=== PATIENT | female | born 1995 | race Hispanic/Latino ===

== ENCOUNTER 2021-12-04 14:24 | Outpatient (CLI) | payer OTHER ==
[2021-12-05 12:45] LABS: SARS-CoV-2 PCR by NAA DETECTED (NotDetected)
== END 2021-12-04 14:25 | disposition home or self-care (01) ==
LOC: CSHLAB 14:24
PROVIDERS: ATTEND Family Medicine
DX: U07.1 COVID-19 (principal)
CPT/HCPCS: U0003; U0005

== ENCOUNTER 2021-12-09 11:40 | Inpatient (IN) | payer MEDICAID, OTHER, SELFPAY ==
[2021-12-09 12:50] VITALS: BMI 33.6
[2021-12-09] MEDS ORDERED: HYDROcodone/Acetaminophen 5/325 mg Tablet PO PRN ×4 (12:58→18:18)
[2021-12-09] MEDS ORDERED: Butorphanol Tartrate 1 MG/ML VIAL SLOW IVP PRN (12:58)
[2021-12-09] MEDS ORDERED: Promethazine HCl 25 MG/ML VIAL IM PRN ×3 (12:58→18:18)
[2021-12-09] MEDS ORDERED: Methylergonovine 0.2 MG/ML VIAL IM PRN (12:58)
[2021-12-09] MEDS ORDERED: Diphenoxylate HCl/Atropine Tablet PO PRN ×2 (12:58)
[2021-12-09] MEDS ORDERED: Carboprost 250 MCG/ML AMP IM PRN (12:58)
[2021-12-09] MEDS ORDERED: Ibuprofen 800 MG TAB PO PRN (12:58)
[2021-12-09] MEDS ORDERED: hydrALAZINE 20 MG/ML VIAL SLOW IVP PRN ×2 (12:58→18:18)
[2021-12-09] MEDS ORDERED: Ondansetron PF 4 MG/2 ML Vial IVP PRN ×3 (12:58→18:18)
[2021-12-09] MEDS ORDERED: Acetaminophen 500 MG TAB PO PRN (12:58)
[2021-12-09] MEDS ORDERED: Lidocaine 1% (PF) 30 ML VIAL SC PRN (12:58)
[2021-12-09] MEDS ORDERED: Misoprostol 200 MCG TAB PR PRN (12:58)
[2021-12-09] MEDS ORDERED: Lactated Ringer's 1,000 ML IV SCH (13:00)
[2021-12-09] MEDS ORDERED: Penicillin G Potassium 5 MILL.UNITS in Sodium Chloride 0.9% 100 ML IVPB SCH (13:00)
[2021-12-09] MEDS ORDERED: NS w/ Oxytocin 30 units 500 ML IV SCH (13:00)
[2021-12-09 13:39] LABS: Hemoglobin 12.6 g/dL (12.0-15.5); Mean Corpuscular HGB CONC 33.2 g/dL (32.0-36.0); Mean Corpuscular Hemoglobin 28.4 pg (27.0-33.0); Mean Corpuscular Volume 85.6 fl (81.6-98.3); Mean Platelet Volume 11.5 fl (7.4-10.4); Platelet Count 204 10x3/uL (150-450); Red Blood Cell (RBC) Count 4.43 10x6/uL (3.90-5.03); White Blood Cell (WBC) Count 7.9 10x3/uL (3.5-10.5)
[2021-12-09 14:10] LABS: Hep B Surf Ag Non-Reactive S/CO (NonReactive)
[2021-12-09 14:11] LABS: Syphilis Antibody Nonreactive (Nonreactive); Syphilis Antibody Index 0.03 S/CO (<1.00 Non-Reactive)
[2021-12-09] MEDS ORDERED: Azithromycin 500 MG VIAL ONE (14:20)
[2021-12-09] MEDS ORDERED: ceFAZolin 2 GM/Dextrose 50 ML IVPB ONE (14:20)
[2021-12-09] MEDS ORDERED: Famotidine/PF 20 mg/2ml Vial SLOW IVP PRN (15:11)
[2021-12-09] MEDS ORDERED: Bicitra 30 ML UDCUP PO PRN (15:11)
[2021-12-09] MEDS ORDERED: ceFAZolin 2 GM/Dextrose 50 ML 2 GM in Premix Bag 1 BAG IVPB SCH (15:15)
[2021-12-09] MEDS ORDERED: Azithromycin 500 MG in Sodium Chloride 0.9% 250 ML 250 ML IVPB SCH (15:15)
[2021-12-09] MEDS ORDERED: Promethazine HCl 25 MG SUPP PR PRN (15:34)
[2021-12-09] MEDS ORDERED: L&D-Morphine 4 MG/ML VIAL SLOW IVP PRN (15:34)
[2021-12-09] MEDS ORDERED: Ondansetron HCl/PF 4 MG/2 ML Vial IVP PRN (15:34)
[2021-12-09] MEDS ORDERED: Naloxone HCl 0.4 mg/ml Vial IV PRN (15:34)
[2021-12-09] MEDS ORDERED: Ketorolac Tromethamine 30 MG/ML VIAL IVP PRN (15:34)
[2021-12-09] MEDS ORDERED: diphenhydrAMINE 50 MG/ML VIAL IVP PRN (15:34)
[2021-12-09] MEDS ORDERED: Fentanyl 100 MCG/2 ML VIAL SLOW IVP PRN (15:34)
[2021-12-09] MEDS ORDERED: Meperidine HCl/PF 25 MG/ML VIAL SLOW IVP PRN (15:34)
[2021-12-09] MEDS ORDERED: Naloxone HCl 0.4 mg/ml Vial IVP PRN ×2 (15:34)
[2021-12-09] MEDS ORDERED: Hydrocerin (Eucerin) Cream 120 gm Jar TOP PRN (15:34)
[2021-12-09] MEDS ORDERED: Ketorolac Tromethamine 30 MG/ML VIAL IVP SCH (15:45)
[2021-12-09] MEDS ORDERED: Communication Order-Pharmacy FS SCH (15:45)
[2021-12-09] MEDS ORDERED: Penicillin G 2.5 MILL.units 2.5 MILL.UNITS in Premix Bag 1 BAG IVPB SCH (17:00)
[2021-12-09] MEDS ORDERED: Simethicone Chewable 80 MG TAB PO PRN (18:18)
[2021-12-09] MEDS ORDERED: Boostrix 0.5 ML (Tdap) VIAL IM ONE (18:18)
[2021-12-09] MEDS ORDERED: Acetaminophen 325 MG TAB PO PRN (18:18)
[2021-12-09] MEDS: Docusate 100 MG CAP PO SCH (21:53)
[2021-12-09] MEDS: diphenhydrAMINE 25 MG CAP PO PRN (21:53)
[2021-12-09] MEDS: Ferrous Sulfate 325 MG TAB PO SCH (22:13)
[2021-12-10 05:03] LABS: Hemoglobin 9.8 g/dL (12.0-15.5); Mean Corpuscular HGB CONC 33.6 g/dL (32.0-36.0); Mean Corpuscular Hemoglobin 28.4 pg (27.0-33.0); Mean Corpuscular Volume 84.6 fl (81.6-98.3); Mean Platelet Volume 11.3 fl (7.4-10.4); Platelet Count 176 10x3/uL (150-450); RBC Distribution Width 13.6 % (11.5-14.5); Red Blood Cell (RBC) Count 3.45 10x6/uL (3.90-5.03); White Blood Cell (WBC) Count 11.2 10x3/uL (3.5-10.5)
[2021-12-10] MEDS: diphenhydrAMINE 25 MG CAP PO PRN (05:21)
[2021-12-10] MEDS: Docusate 100 MG CAP PO SCH ×2 (08:39→21:48)
[2021-12-10] MEDS: Prenatal Vitamin 1 TAB PO SCH (08:39)
[2021-12-10] MEDS: Ferrous Sulfate 325 MG TAB PO SCH ×2 (08:39→21:48)
[2021-12-10] MEDS: Ibuprofen 800 MG TAB PO SCH (21:47)
[2021-12-11] MEDS: Ibuprofen 800 MG TAB PO SCH (05:45)
[2021-12-11] MEDS: Ferrous Sulfate 325 MG TAB PO SCH (07:54)
[2021-12-11] MEDS: Docusate 100 MG CAP PO SCH (07:54)
[2021-12-11] MEDS: Prenatal Vitamin 1 TAB PO SCH (07:54)
[2021-12-11 11:27] VITALS: BP 108/67; TEMP 97.8
== END 2021-12-11 12:11 | disposition home or self-care (01) | DRG 786 ==
LOC: CSHLD/OP 11:40 → CSHLD 13:55 → CSHANTE 17:45
PROVIDERS: ADMIT Obstetrics & Gynecology; ATTEND Obstetrics & Gynecology
PROC: 10D00Z1 Extraction of Products of Conception, Low, Open Approach (ICD-10-PCS; principal; 2021-12-09)
PROC: 8E0ZXY6 Isolation (ICD-10-PCS; 2021-12-09)
DX: O32.8XX0 Maternal care for other malpresentation of fetus, not applicable or unspecified (principal); U07.1 COVID-19; O98.52 Other viral diseases complicating childbirth; Z3A.40 40 weeks gestation of pregnancy; Z37.0 Single live birth; O77.0 Labor and delivery complicated by meconium in amniotic fluid; O99.824 Streptococcus B carrier state complicating childbirth
CPT/HCPCS: 36415; 51702; 85027; 86780; 86850; 86900; 86901; 87340; 99285; J1885; J2540; J3490

== ENCOUNTER 2025-07-30 09:52 | Inpatient (IN) | payer MEDICAID, OTHER, SELFPAY ==
[2025-07-29 13:25] LABS: Hematocrit 31.7 % (34.9-44.5); Hemoglobin 10.8 g/dL (12.0-15.5); Platelet Count 193 10x3/uL (150-450)
[2025-07-29 13:53] LABS: Syphilis Antibody Index 0.06 S/CO (<1.00 Non-Reactive)
[2025-07-29 13:56] LABS: HIV (1/2) Antibody/Antigen Non-Reactive (NonReactive); HIV 1/2 INDEX 0.10 S/CO (<1.00); Hep B Surf Ag Non-Reactive S/CO (NonReactive)
[2025-07-30] MEDS ORDERED: Carboprost 250 MCG/ML AMP IM PRN (10:45)
[2025-07-30] MEDS ORDERED: hydrALAZINE 20 MG/ML VIAL SLOW IVP PRN ×2 (10:45→16:05)
[2025-07-30] MEDS ORDERED: Tranexamic Acid 1,000 MG/10 ML VIAL IVP PRN (10:45)
[2025-07-30] MEDS ORDERED: Bicitra 30 ML UDCUP PO PRN (10:45)
[2025-07-30] MEDS ORDERED: Methylergonovine 0.2 MG/ML VIAL IM PRN (10:45)
[2025-07-30] MEDS ORDERED: Oxytocin 30 units/NS 500 ML 500 ML IV SCH (10:45)
[2025-07-30] MEDS ORDERED: Ondansetron PF 4 MG/2 ML Vial IVP PRN ×4 (10:45→16:05)
[2025-07-30] MEDS ORDERED: Diphenoxylate HCl/Atropine Tablet PO PRN (10:45)
[2025-07-30 10:48] VITALS: BMI 36.3
[2025-07-30] MEDS: Famotidine/PF 20 mg/2ml Vial SLOW IVP PRN (11:49)
[2025-07-30] MEDS ORDERED: diphenhydrAMINE 50 MG/ML VIAL IVP PRN (14:48)
[2025-07-30] MEDS ORDERED: Meperidine HCl/PF 25 MG (1 mL) VIAL SLOW IVP PRN (14:48)
[2025-07-30] MEDS ORDERED: Ketorolac Tromethamine 30 MG (1 mL) VIAL IVP PRN (14:48)
[2025-07-30] MEDS: Ketorolac Tromethamine 30 MG (1 mL) VIAL IVP SCH ×2 (14:55→20:42)
[2025-07-30] MEDS ORDERED: Communication Order-Pharmacy FS SCH (15:00)
[2025-07-30] MEDS ORDERED: Lanolin Ointment 7 GM TUBE TOP PRN (16:05)
[2025-07-30] MEDS ORDERED: Bisacodyl 10 MG SUPP PR PRN (16:05)
[2025-07-30] MEDS ORDERED: Simethicone Chewable 80 MG TAB PO PRN (16:05)
[2025-07-30] MEDS: Dexamethasone 10 MG/ML VIAL ONE (16:11)
[2025-07-30] MEDS: Ondansetron PF 4 MG/2 ML Vial ONE (16:12)
[2025-07-30] MEDS: PHENYLEPHRINE-NS 100 MCG/ML 10 ML SYRINGE ONE (16:12)
[2025-07-30] MEDS: Oxytocin 10 UNITS/ML VIAL ONE (16:12)
[2025-07-30] MEDS: Erythromycin Base 0.5% Oint 1 GM TUBE ONE (16:12)
[2025-07-30] MEDS: Ketorolac Tromethamine 30 MG (1 mL) VIAL ONE (16:13)
[2025-07-30] MEDS: Ferrous Sulfate 325 MG TAB PO SCH (16:14)
[2025-07-30] MEDS: diphenhydrAMINE 25 MG CAP PO PRN (20:42)
[2025-07-31] MEDS ORDERED: Meperidine HCl/PF 25 MG (1 mL) VIAL IM PRN (03:00)
[2025-07-31 05:43] LABS: Hematocrit 26.6 % (34.9-44.5); Hemoglobin 8.8 g/dL (12.0-15.5); Mean Corpuscular Hemoglobin 27.2 pg (27.0-33.0); Mean Corpuscular Volume 82.1 fL (81.6-98.3); Platelet Count 154 10x3/uL (150-450); Red Blood Cell (RBC) Count 3.24 10x6/uL (3.90-5.03); White Blood Cell (WBC) Count 9.00 10x3/uL (3.5-10.5)
[2025-07-31] MEDS: HYDROcodone/Acetaminophen 5/325 mg Tablet PO PRN (14:13)
[2025-07-31] MEDS: Ibuprofen 800 MG TAB PO SCH (14:14)
[2025-08-01] MEDS: HYDROcodone/Acetaminophen 5/325 mg Tablet PO PRN (00:36)
[2025-08-01] MEDS: Boostrix 0.5 ML (Tdap) VIAL (>/=7 yrs of age) IM ONE (07:24)
[2025-08-02 08:47] VITALS: BP 101/58; TEMP 97.7
== END 2025-08-02 17:55 | disposition home or self-care (01) | DRG 788 ==
LOC: CSHLD 09:52 → CSHPED 15:15
PROVIDERS: ADMIT Family Medicine; ATTEND Family Medicine
PROC: 10D00Z1 Extraction of Products of Conception, Low, Open Approach (ICD-10-PCS; principal; 2025-07-30)
DX: O34.211 Maternal care for low transverse scar from previous cesarean delivery (principal); Z79.82 Long term (current) use of aspirin; Z79.899 Other long term (current) drug therapy
CPT/HCPCS: 36415; 51702; 85014; 85018; 85027; 85049; 86780; 86850; 86900; 86901; 87340; 87389; C1889; J1100; J1885; J2274; J2550; J2590